=== PATIENT | female | born 1990 | race Caucasian/White ===

== ENCOUNTER 2017-02-28 22:39 | Emergency (ER) | payer SELFPAY ==
[~2017-02-28 22:39] MED LIST: PRENCAP6 PO
[2017-02-28 22:45] VITALS: BP 118/65; PULSE 88; RESP 24; TEMP 98.6; O2SAT 98
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
[2017-02-28 23:55] VITALS: BP 116/78
== END 2017-02-28 23:57 | disposition home or self-care (01) ==
LOC: NEPD 22:39
DX: F41.8 Other specified anxiety disorders (principal); Z86.59 Personal history of other mental and behavioral disorders; Z87.891 Personal history of nicotine dependence
CPT/HCPCS: 99281